=== PATIENT | female | born 1955 | race Caucasian/White ===

== ENCOUNTER 2017-07-23 14:26 | Emergency (ER) | payer MEDICARE ==
[2017-07-23 15:14] VITALS: BP 86/59
--- NOTE | 2017-07-23 16:23 | UC ---
Throat Pain/Nasal Fabrice HPI - HPI Summary HPI Summary: 61 female presents to with complaints of nasal congestion, productive cough, chest congestion, intermittent chills and fatigue for the past month worsening over the past week. States she has tried mucinex and zicam without relief. Is unable to get rid of her symptoms. Thought at first it was just a cold however it has only gotten worse and has not improved. Has not been taking depressive medication. - History of Current Complaint Chief Complaint: UCRespiratory Stated Complaint: COUGH/SINUS Time Seen by Provider: 07/23/17 15:38 Hx Obtained From: Patient Hx Last Menstrual Period: 2010 Onset/Duration: Sudden Onset, Lasting Weeks, Still Present, Worse Since Severity: Moderate Pain Intensity: 0 Pain Scale Used: 0-10 Numeric Cough: Productive - mucus production Associated Signs & Symptoms: Positive: Sinus Discomfort, Nasal Discharge - Allergies/Home Medications Allergies/Adverse Reactions: Allergies Allergy/AdvReac Type Severity Reaction Status Date / Time No Known Allergies Allergy Verified 07/23/17 15:14 PMH/Surg Hx/FS Hx/Imm Hx Psychological History: Depression - Surgical History Surgical History: Yes Surgery Procedure, Year, and Place: hysterectomy - Family History Known Family History: Positive: None - Social History Alcohol Use: Rare Substance Use Type: None Smoking Status (MU): Never Smoked Tobacco Review of Systems Constitutional: Negative ENT: Ear Ache, Nasal Discharge, Sinus Congestion Respiratory: Cough Cardiovascular: Negative Gastrointestinal: Vomiting, Nausea Neurological: Headache All Other Systems Reviewed And Are Negative: Yes Physical Exam Triage Information Reviewed: Yes Appearance: Well-Appearing - tearful and appears depressed/stressed out, congested, No Pain Distress, Well-Nourished Vital Signs: Initial Vital Signs Temp 98.6 F 07/23/17 15:07 Pulse 112 07/23/17 15:07 Resp 18 07/23/17 15:07 BP 86/59 07/23/17 15:07 Pulse Ox 99 07/23/17 15:07 tachycardia noted, patient anxious, vitals improved at discharge Vital Signs Reviewed: Yes Eyes: Positive: Conjunctiva Clear ENT: Positive: Normal ENT inspection, Hearing grossly normal, Pharynx normal - post nasal drip, Nasal drainage, TMs normal, Uvula midline. Negative: Sinus tenderness Dental: Negative: Percussion Tenderness @, Cervical Lymphadenopathy Neck: Positive: Supple, Nontender, No Lymphadenopathy Respiratory: Positive: Chest non-tender, Lungs clear, Normal breath sounds, No respiratory distress, No accessory muscle use Cardiovascular: Positive: RRR, No Murmur, Pulses Normal, Brisk Capillary Refill Abdomen Description: Positive: Nontender, Soft Bowel Sounds: Positive: Present Musculoskeletal: Positive: Strength Intact Neurological: Positive: Alert Skin Exam: Normal Throat Pain/Nasal Course/Dx - Course Course Of Treatment: influenza obtained patient request and negative. appears to be suffering from URI/bronchitis. due to length of symptoms and no relief with OTC meds, will attempt trial of antibiotic. symptomatic measures continue. aware fo worsening signs and symptoms. normal physical exam and vitals otherwise. no other concerns at this time. - Differential Dx/Diagnosis Differential Diagnosis/HQI/PQRI: Sinusitis, URI, Other - viral illness Provider Diagnoses: URI/bronchitis Discharge - Discharge Plan Condition: Stable Disposition: HOME Prescriptions: Azithromycin TAB* [Zithromax TAB (Z-KAMRAN) 250 mg #6 tabs] 2 tab PO .TODAY, THEN 1 DAILY #1 kamran Desloratadine/Pseudoephedrine [Clarinex-D 12 Hour Tablet] 1 each PO DAILY #14 tbmp.12hr Fluticasone NASAL SPRAY 50MCG* [Flonase NASAL SPRAY 50MCG*] 2 spray BOTH NARES DAILY #1 btl Patient Education Materials: Upper Respiratory Infection (ED), Acute Bronchitis (ED) Referrals: Non Staff,Doctor [Primary Care Provider] - Additional Instructions: Take prescribed medication as directed. Increase fluids and get plenty of rest. Recommend follow up with PCP. Start taking your daily medications again. Any new or worsening symptoms please seek medical attention.
== END 2017-07-23 16:29 | disposition home or self-care (01) ==
LOC: UCCORT 14:26
DX: J40 Bronchitis, not specified as acute or chronic (principal)
CPT/HCPCS: 87502; 99212; G0463